=== PATIENT | male | born 1975 | race African-American/Black ===

== ENCOUNTER 2018-01-04 11:45 | Inpatient (IN) | payer OTHER ==
[~2018-01-04] VITALS: Ht 185.4 cm; Wt 70.8 kg
[2018-01-04 12:40] LABS: CALCIUM 8.3 mg/dL (8.5-10.1); CARBON DIOXIDE 26.5 mmol/L (21-32); CHLORIDE SERUM 106 mmol/L (98-107); CREATININE SERUM 0.7 mg/dL (0.7-1.3); GFR1 > 60 mL/min; GLUCOSE SERUM 87 mg/dL (74-106); POTASSIUM SERUM 3.9 mmol/L (3.5-5.1); SODIUM SERUM 140 mmol/L (136-145)
[2018-01-04 12:45] LABS: ALKALINE PHOSPHATASE 143 U/L (46-116); ALT/SGPT 23 U/L (16-63); AST/SGOT 66 U/L (15-37); BILIRUBIN TOTAL 3.25 mg/dL (0.20-1.00); LIPASE 82 IU/L (73-393)
[2018-01-04 12:47] LABS: ALBUMIN 3.3 g/dL (3.4-5.0); TOTAL PROTEIN, SERUM 8.3 g/dL (6.4-8.2)
[2018-01-04 13:07] LABS: microscopic required? YES; urine erythrocyte NEGATIVE (NEGATIVE)
[2018-01-04 13:10] LABS: PLATELET COUNT 158 x10^3mcL (130-400); RED BLOOD CELLS 2.51 M/mm3 (4.52-5.90)
[2018-01-04 13:22] LABS: RED CELL DISTRIBUTION WIDTH 44.1 % (11.5-14.5)
[2018-01-04 13:23] LABS: AMPHETAMINE QUAL UR NONE DETECTED (See below)
[2018-01-04] MEDS ORDERED: NATURE'S BLEND F1 MG PO (13:26)
[2018-01-04] MEDS ORDERED: DROXIA400 MG PO (13:28)
[2018-01-04 13:55] LABS: SEGMENTED NEUTROPHILS 10 % (37-75)
[2018-01-04 13:56] LABS: BAND NEUTROPHIL 3 % (0-10); MONOCYTE 8 % (0-7); rbc morphology (normal/abnorm) ABNORMAL (NORMAL)
[2018-01-04 13:58] LABS: schistocyte (helmet cell) 1+; target cell (codocyte) 3+
[2018-01-04 13:59] LABS: PLATELET MORPHOLOGY LARGE PLATELET SEEN
[2018-01-04 14:14] LABS: MAGNESIUM 1.9 mg/dL (1.8-2.4); PHOSPHOROUS 4.2 mg/dL (2.5-4.9)
[2018-01-04 14:15] LABS: CHOLESTEROL/HDL RATIO 2.8
[2018-01-04 14:24] LABS: FREE T4 1.24 ng/dL (0.76-1.46); FREE THYROXINE INDEX 2.6 ug/dL (1.4-4.5); T4(THYROXINE) 7.4 ug/dL (4.7-13.3)
[2018-01-04 14:47] LABS: PATH REVIEW for HEMA YES
[2018-01-04 15:22] LABS: T3 TOTAL 1.02 ng/mL
[2018-01-04 15:33] VITALS: BP 112/78
[2018-01-04 17:34] VITALS: BP 95/50
[2018-01-04 18:21] VITALS: Ht 185.4 cm; Wt 70.8 kg
== END 2018-01-04 17:39 | disposition left against medical advice (07) | DRG 662 ==
LOC: ED 11:45 → DU 13:40
PROVIDERS: Emergency Medicine; Family Medicine
DX: D57.00 Hb-SS disease with crisis, unspecified (principal); E44.0 Moderate protein-calorie malnutrition; L89.512 Pressure ulcer of right ankle, stage 2; N39.0 Urinary tract infection, site not specified; D64.9 Anemia, unspecified; F17.210 Nicotine dependence, cigarettes, uncomplicated; D72.819 Decreased white blood cell count, unspecified; Z53.21 Procedure and treatment not carried out due to patient leaving prior to being seen by health care provider; J98.11 Atelectasis; Z68.20 Body mass index [BMI] 20.0-20.9, adult; Z90.49 Acquired absence of other specified parts of digestive tract; Z79.899 Other long term (current) drug therapy
CPT/HCPCS: 83880; 84439; 85060; J0696; J1885; J2270; J7030; Q0092